=== PATIENT | male | born 1955 | race Two or more races ===

== ENCOUNTER 2019-11-10 13:39 | Emergency (ER) | payer BC ==
[~2019-11-10] VITALS: Ht 162.6 cm; Wt 90.7 kg
--- NOTE | 2019-11-10 14:00 | NUR ---
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 On room air, breathing evenly and unlabored. connected to the monitor and pulse ox. Will continue to monitor accordingly.
--- NOTE | 2019-11-10 14:32 | NUR ---
Dr. Hendricks at bedside for eval.
[2019-11-10 15:23] VITALS: BP 151/65
--- NOTE | 2019-11-10 15:24 | NUR ---
Patient discharged to home in stable condition. Written and verbal after care instructions given. Patient verbalizes understanding of instruction.IV removed. Catheter intact and site benign. Pressure and 4x4 applied to site. No bleeding noted.
== END 2019-11-10 15:23 | disposition home or self-care (01) ==
LOC: ER 13:39
DX: R00.2 Palpitations (principal); I10 Essential (primary) hypertension; E11.9 Type 2 diabetes mellitus without complications